=== PATIENT | male | born 1990 | race Caucasian/White ===

== ENCOUNTER 2022-12-29 09:17 | Emergency (ER) | payer OTHER ==
[~2022-12-29] VITALS: Ht 182.9 cm; Wt 65.8 kg
[2022-12-30] MEDS ORDERED: PEPCID AC20 MG PO (18:13)
[2022-12-30] MEDS ORDERED: CIPRO500 MG PO (18:13)
[2022-12-30] MEDS ORDERED: INTESTINEX680 M1 PO (18:13)
== END 2022-12-30 21:53 | disposition home or self-care (01) ==
LOC: ER 09:17
DX: N39.0 Urinary tract infection, site not specified (principal); E86.0 Dehydration; Z93.2 Ileostomy status; Z20.822 Contact with and (suspected) exposure to COVID-19